=== PATIENT | female | born 1950 | race Two or more races ===

== ENCOUNTER → 2021-03-04 | Emergency (ER) | payer OTHER ==
[~2021-03-04] VITALS: Ht 154.9 cm; Wt 74.8 kg
[~2021-03-04] MED LIST: COZAAR50 MG PO; GLUMETZA1000 MG PO; GRALISE600 MG PO; RESTORIL30 M1 PO; SIMVASTATIN1 GM MC
== END | disposition home or self-care (01) ==
LOC: ER 16:17
DX: S82.64XA Nondisplaced fracture of lateral malleolus of right fibula, initial encounter for closed fracture (principal); W18.39XA Other fall on same level, initial encounter; Y93.89 Activity, other specified; Y92.098 Other place in other non-institutional residence as the place of occurrence of the external cause; Y99.8 Other external cause status

== ENCOUNTER 2021-05-17 15:52 | Emergency (ER) | payer OTHER ==
[~2021-05-17] VITALS: Ht 154.9 cm; Wt 73.5 kg
[2021-05-17] MEDS ORDERED: TYLENOL ARTHRI650 MG PO (19:25)
== END 2021-05-17 20:35 | disposition home or self-care (01) ==
LOC: ER 15:52
DX: S62.306A Unspecified fracture of fifth metacarpal bone, right hand, initial encounter for closed fracture (principal); W19.XXXA Unspecified fall, initial encounter; Y93.9 Activity, unspecified; Y92.9 Unspecified place or not applicable; Y99.9 Unspecified external cause status

== ENCOUNTER 2023-06-22 11:15 | Emergency (ER) | payer OTHER ==
[~2023-06-22] VITALS: Ht 154.9 cm; Wt 69.9 kg
[~2023-06-22 11:15] MED LIST changes: +ALLERGY RELIE15.8 ML; +ARICEPT10 MG; +CARBIDOPA-LEVO1 EAC1; +CEPHALEXIN500 MG PO; +CLONAZEPAM1 MG; +CLONAZEPAM2 MG; +FLUOXETINE DR90 MG; +FOLIC ACID0.8 M1; +INVEGA6 MG; +LEVO-T112 MCG; +NAMENDA5 MG; +RELAFEN DS1000 MG PO; +SIMVASTATIN5 MG; +TRAZODONE HCL300 MG; +TYLENOL ARTHRI650 MG PO
[2023-06-22] MEDS ORDERED: ELIQUIS5 MG PO (11:43)
[2023-06-22] MEDS ORDERED: CARVEDILOL ER40 MG (11:43)
[2023-06-22] MEDS ORDERED: LASIX20 MG (11:45)
[2023-06-22] MEDS ORDERED: ROPINIROLE HCL3 MG PO (11:48)
[2023-06-22] MEDS ORDERED: ORPHENADRINE CITRATE 30 MG/ML AMPUL IM STA (12:28)
[2023-06-22] MEDS ORDERED: KETOROLAC TROMETHAMINE 30 MG VIAL IM STA (12:28)
== END 2023-06-22 12:46 | disposition home or self-care (01) ==
LOC: ER 11:15
DX: M54.30 Sciatica, unspecified side (principal); Z88.2 Allergy status to sulfonamides

== ENCOUNTER 2023-09-18 22:25 | Emergency (ER) | payer OTHER ==
[~2023-09-18] VITALS: Ht 154.9 cm; Wt 70.8 kg
[~2023-09-18 22:25] MED LIST changes: +CARVEDILOL ER40 MG; +ELIQUIS5 MG PO; +LASIX20 MG; +ROPINIROLE HCL3 MG PO
[2023-09-19] MEDS ORDERED: ORPHENADRINE CITRATE 30 MG/ML AMPUL IM STA (03:15)
[2023-09-19] MEDS ORDERED: KETOROLAC TROMETHAMINE 60 MG VIAL IM STA (03:15)
[2023-09-19] MEDS ORDERED: ORPHENADRINE CITRATE 30 MG/ML AMPUL ONE (03:19)
[2023-09-19] MEDS ORDERED: KETOROLAC TROMETHAMINE 60 MG VIAL IM ONE (03:19)
== END 2023-09-19 04:21 | disposition home or self-care (01) ==
LOC: ER 22:26
DX: S13.4XXA Sprain of ligaments of cervical spine, initial encounter (principal); W18.39XA Other fall on same level, initial encounter; Y93.89 Activity, other specified; Y92.018 Other place in single-family (private) house as the place of occurrence of the external cause; S60.221A Contusion of right hand, initial encounter; Z88.2 Allergy status to sulfonamides
CPT/HCPCS: 72040; 73120; 96372; 99284; J1885; J2360